=== PATIENT | female | born 1980 | race Caucasian/White ===

== ENCOUNTER 2022-02-08 11:07 | Emergency (ER) | payer SELFPAY ==
[~2022-02-08] VITALS: Ht 162.6 cm; Wt 86.0 kg
[2022-02-08 11:23] VITALS: BP 113/69
[2022-02-08] MEDS ORDERED: HYDROcodone-ACET 5/325MG TAB PO ONE (12:00)
[2022-02-08] MEDS ORDERED: IBUP800T27 PO (12:55)
== END 2022-02-08 12:36 | disposition home or self-care (01) ==
LOC: EDBD 11:07 → ER 11:07
DX: S00.83XA Contusion of other part of head, initial encounter (principal); R51.9 Headache, unspecified; W21.06XA Struck by volleyball, initial encounter; Y93.89 Activity, other specified; Y92.89 Other specified places as the place of occurrence of the external cause; Y99.8 Other external cause status
CPT/HCPCS: 70450; 70486